=== PATIENT | female | born 1980 | race American Indian/Alaskan Native ===

== ENCOUNTER 2020-09-05 19:48 | Emergency (ER) | payer SELFPAY ==
[2020-09-05 20:24] VITALS: BP 178/89
--- NOTE | 2020-09-05 20:57 | Emergency Department Report ---
ED Back Pain/Injury HPI - General Chief Complaint: Back Pain/Injury Stated Complaint: BACK PAIN Time Seen by Provider: 09/05/20 20:24 Source: patient Limitations: No Limitations - History of Present Illness MD Complaint: back pain -: Gradual, days(s) (3) - Related Data Previous Rx's Medication Instructions Recorded Last Taken Type Ketorolac [Toradol] 10 mg PO Q6H PRN #15 tablet 09/05/20 Unknown Rx methOCARBAMOL [Robaxin TAB] 750 mg PO Q8H #20 tablet 09/05/20 Unknown Rx Allergies Allergy/AdvReac Type Severity Reaction Status Date / Time No Known Allergies Allergy Verified 09/05/20 20:21 ED Review of Systems ROS: Stated complaint: BACK PAIN Other details as noted in HPI Comment: All other systems reviewed and negative ED Past Medical Hx - Past Medical History Previous Medical History?: No - Surgical History Past Surgical History?: No - Medications Home Medications: Home Medications Medication Instructions Recorded Confirmed Last Taken Type Ketorolac [Toradol] 10 mg PO Q6H PRN #15 tablet 09/05/20 Unknown Rx methOCARBAMOL [Robaxin TAB] 750 mg PO Q8H #20 tablet 09/05/20 Unknown Rx ED Physical Exam - General Limitations: No Limitations General appearance: alert, in no apparent distress - Head Head exam: Present: atraumatic, normocephalic, normal inspection - Eye Eye exam: Present: normal appearance, PERRL, EOMI. Absent: scleral icterus, conjunctival injection, periorbital swelling Pupils: Present: normal accommodation - ENT ENT exam: Present: normal exam, mucous membranes moist, TM's normal bilaterally - Neck Neck exam: Present: normal inspection, full ROM - Respiratory Respiratory exam: Present: normal lung sounds bilaterally. Absent: respiratory distress, wheezes, rales, chest wall tenderness, accessory muscle use, decreased breath sounds - Cardiovascular Cardiovascular Exam: Present: regular rate, normal rhythm. Absent: systolic murmur, diastolic murmur, rubs, gallop - GI/Abdominal GI/Abdominal exam: Present: soft, normal bowel sounds. Absent: tenderness, guarding, hypoactive bowel sounds, mass - Extremities Exam Extremities exam: Present: normal inspection, normal capillary refill. Absent: pedal edema, joint swelling - Back Exam Back exam: Present: normal inspection (Right sacroiliac joint with palpation. Pain with range of motion with axial rotation and lateral flexion.), tenderness, muscle spasm, paraspinal tenderness - Neurological Exam Neurological exam: Present: alert, oriented X3, CN II-XII intact, normal gait - Psychiatric Psychiatric exam: Present: normal affect, normal mood. Absent: anxious, flat affect - Skin Skin exam: Present: warm, dry, intact, normal color. Absent: rash, cyanosis, diaphoretic ED Course Vital Signs 09/05/20 20:21 Temperature 98.7 F Pulse Rate 87 Respiratory 17 Rate Blood Pressure 178/89 O2 Sat by Pulse 99 Oximetry ED Medical Decision Making - Medical Decision Making Pt presents the emergency department complaining of back pain most consistent with lumbar strain/back Pain Most Consistent with Strain/Contusion. Differential Diagnosis Includes Lumbar Go Versus Musculoskeletal Spasm, Strain Versus Sciatica. No Back Pain Red Flags on History or Physical. Presentation Not Consistent with Malignancy, Fracture, Cauda Equina, Abdominal Aortic Aneurysm, Viscus Perforation, Pulmonary Embolism, Renal Colic, Pyelonephritis. Patient reports no B symptoms, trauma trauma, incontinence, saddle anesthesia, distal weakness, urinary symptoms and is a febrile. Critical care attestation.: If time is entered above; I have spent that time in minutes in the direct care of this critically ill patient, excluding procedure time. ED Disposition Clinical Impression: Lumbago Disposition: - TO HOME OR SELFCARE Is pt being admited?: No Does the pt Need Aspirin: No Condition: Stable Instructions: Acute Back Pain, Adult, Radicular Pain Prescriptions: methOCARBAMOL [Robaxin TAB] 750 mg PO Q8H #20 tablet Ketorolac [Toradol] 10 mg PO Q6H PRN #15 tablet PRN Reason: Pain Referrals: PRIMARY CAREMD [Primary Care Provider] - 3-5 Days JESSE MULLIGAN MD [Staff Physician] - 3-5 Days
--- NOTE | 2020-09-05 21:09 | XRay Report ---
XR spine lumbosacral 2-3V HISTORY: lower back pain COMPARISON: None. TECHNIQUE: 3 view(s) of the lumbar spine obtained. FINDINGS: Vertebrae: Mild leftward curvature with apex at L2 Vertebral body heights are preserved. Spondylosis:Disc space heights are preserved. IMPRESSION: 1. Mild levoscoliosis without acute abnormality of the lumbar spine. Signer Name: João Lyman MD Signed: 09/05/2020 9:05 PM Workstation Name: [id number]
== END 2020-09-05 22:18 | disposition home or self-care (01) ==
LOC: ED 19:48
DX: M54.5 Low back pain (principal); Z79.899 Other long term (current) drug therapy
CPT/HCPCS: 72100